=== PATIENT | male | born 1985 | race Caucasian/White ===

== ENCOUNTER 2025-02-04 08:21 | Day surgery (SDC) | payer OTHER, SELFPAY ==
[2025-02-04] VITALS (12 sets, daily range): BP systolic 127–153; BP diastolic 78–100; PULSE 62–78; RESP 16–20; TEMP 36.3–36.8; O2SAT 95–100; BMI 28.9
--- NOTE | 2025-02-04 08:39 | EX.ED.DYSGE1 ---
HPI History of Present Illness Chief Complaint: Nausea/Vomiting Informant: patient Onset/Context/Timing Onset: Today Context: Gradual Onset Timing: Continuous Quality: Aching Location: Left flank Worsened by: Nothing Relieved by: Nothing Narrative Narrative: Patient presents with nausea, vomiting, and abdominal pain that began today. Patient states it is gradually gotten worse. Patient states he had a ureteral stent placed 6 days ago for a kidney stone. Patient admits to some dysuria and hematuria that has been intermittent since that time. Patient states he was having some urinary frequency yesterday. Patient states today started having some nausea and vomiting. Patient states he felt like he had a fever at home but his temperature was normal. Patient also admits to headache. Patient states he did have some emesis that he thought was possibly bloody. Patient denies any diarrhea, melena, or hematochezia. [facility] Medical History (Updated 02/04/25 @ 10:[address] Clemente Mack DO) Ureteral calculus, left Allergy/AdvReac Type Severity Reaction Status Date / Time Penicillins AdvReac Intermediate Nausea Verified 02/04/25 08:24 Surgical History (Updated 02/04/25 @ 08:[address] Clemente Mack DO) Hx of Achilles tendon repair S/P ureteral stent placement Social History Smoking Status: Never smoker ROS ROS ED Constitutional Constitutional ED: Reports fever(s) and subjective; Denies chills Eyes Eyes: Denies blurry vision or change in vision ENT ENT ED: Reports rhinorrhea; Denies sore throat Cardiovascular Cardiovascular: Denies chest pain or palpitations Respiratory/Chest Respiratory/Chest: Denies cough or dyspnea Gastrointestinal Gastrointestinal: Reports abdominal pain, nausea and vomiting; Denies diarrhea Genitourinary Genitourinary ED: Reports dysuria, hematuria and urinary frequency Musculoskeletal Musculoskeletal: Reports back pain; Denies neck pain Integumentary Denies abscess or rash Neurologic Neurologic: Reports headache(s); Denies weakness Allergic/Immunologic Allergic/Immunologic ED: Denies mouth swelling or urticaria EXAM Physical Exam Const Vital Signs: 02/04/25 08:22 02/04/25 10:21 Temperature 98.2 F Temperature Source Oral Pulse Rate 64 78 Respiratory Rate 16 18 Blood Pressure 150/100 H 138/91 H Blood Pressure Mean 116 106 Pulse Ox 100 95 Oxygen Delivery Method Room Air Room Air Positive well nourished and well developed General Appearance ED: well developed and NAD HEENT Reports moist mucous membranes and dry mucous membranes Mouth ED: Yes dry mucous membranes Mouth: dry mucous membranes Neck supple and no JVD Resp normal respiratory effort and clear to auscultation bilaterally Cardio regular rate and regular rhythm GI non-tender and non-distended Palpation: soft Back/Spine General Back: CVA tenderness left (Mild) Extremity normal to inspection General Extremety ED: Negative for edema or tenderness General Extremity: Negative for edema Neuro oriented x3, CN's II-XII intact bilaterally and no sensory deficits noted Sensorium / Orientation: alert Motor Exam: strength 5/5 throughout Psych mental status grossly normal MDM MDM MDM Narrative Medical decision making narrative: Differential diagnosis includes pyelonephritis, ureteral calculus, displacement of ureteral stent, sepsis, viral illness, and electrolyte abnormality. CBC will be obtained to assess for leukocytosis and anemia. Basic metabolic profile will be obtained to assess for electrolyte abnormality and renal function. Serum lactate will be obtained to assess for sepsis. Urinalysis will be obtained to assess for urinary tract infection and hematuria. CT scan of the abdomen and pelvis will be obtained to assess for pyelonephritis, displacement of ureteral stent, and ureteral calculus. Lab Data Attestation: I reviewed the patient's lab results. Lab results narrative: CBC was reviewed and was within normal limits. Basic metabolic profile was reviewed and was within normal limits. Serum lactate was reviewed and was less than 1.0. PT with INR and PTT were reviewed and were within normal limits. Urinalysis was reviewed. Occult blood was 250 with 25-50 red blood cells. Leukocyte esterase was 25 was 0-5 white blood cells. Labs: Laboratory Results - last 24 hr 02/04/25 02/04/25 02/04/25 08:35 09:04 10:04 WBC 8.8 RBC 4.65 Hgb 13.9 Hct 40.7 MCV 87.5 MCH 29.9 MCHC 34.2 RDW Std Deviation 40.6 RDW Coeff of Gilberto 12.7 Plt Count 238 MPV 10.0 Immature Gran % (Auto) 0.500 Neut % (Auto) 77.7 H Lymph % (Auto) 14.5 L [place] % (Auto) 5.4 Eos % (Auto) 1.6 Baso % (Auto) 0.3 Absolute Neuts (auto) 6.9 Absolute Lymphs (auto) 1.28 Nucleated RBC % 0 PT 13.4 INR 1.0 APTT 26.3 Sodium 138 Potassium 4.5 Chloride 104 Carbon Dioxide 24.9 Anion Gap 9 BUN 13 Creatinine 0.90 Estim Creat Clear Calc 140.59 Est GFR (MDRD) Non-Af 112 BUN/Creatinine Ratio 14.7 Glucose 111 H Lactic Acid < 1.0 Calcium 9.4 Urine Color Yellow Urine Clarity Clear Urine pH 8.0 Ur Specific [place] 1.010 Urine Protein 30 H Urine Glucose (UA) Normal Urine Ketones Negative Urine Occult Blood 250 H Urine Nitrite Negative Urine Bilirubin Negative Urine Urobilinogen Normal Ur Leukocyte Esterase 25 H Urine RBC 25-50 SEEN Urine WBC 0-5 SEEN Ur Squamous Epith Cells 0 SEEN Urine Bacteria 1+ Urine Mucus 0 SEEN Radiography Diagnostic Testing: Clinical Impression(s) from Imaging Studies Abdomen/Pelvis CT 02/04/25 09:18 IMPRESSION: 1. Left ureteral stent present in satisfactory position. 2. Trace left-sided hydronephrosis versus caliectasis, may signify dysfunction/occlusion of the stent. 3. Mild left periureteral fat stranding, possibly due to reactive changes or an infectious etiology. Reading Location: [facility] CT scan of the abdomen and pelvis was obtained. There is a left ureteral stent noted. There is trace hydronephrosis versus calyectasis on the left. There is left periureteral fat stranding. This was interpreted by the radiologist and was also independently reviewed by myself. Treatment and Re-Evaluation :: Patient was given IV fluids, morphine, and Zofran. Patient was feeling better on reevaluation. Patient was advised of his findings. Case was discussed with Dr. Gonzalez. He will take the patient to the operating room for ureteroscopy. Patient was advised of this. Patient states he has not anything to eat since last night. Patient states he has been drinking water this morning. Patient will be maintained NPO. Patient understands and is agreeable with the plan. All questions were answered. Discharge Plan Triage Chief Complaint: Nausea/Vomiting ED Provider: Clemente Mack Dx/Rx/DC Orders Clinical Impression: Left flank pain, Hydronephrosis of left kidney Primary Care Provider: Angel Reveles Referrals: Angel Reveles MD [Primary Care Provider] - Print Language: [place] Citizen Disposition Disposition: Acute Care Hospital [facility]
[2025-02-04] MEDS: Ondansetron 4 MG/2 ML Vial IV (09:02)
[2025-02-04] MEDS: 0.9% Normal Saline (1000mL) 1,000 ML 1000 ML IV (09:02)
[2025-02-04] MEDS: Morphine 4 MG/ML Syringe IV ×2 (09:02→13:34)
[2025-02-04 09:07] LABS: Absolute Lymphocyte Count 1.28 X10^3/uL (0.83-4.51); Absolute Neutrophil Count 6.9 X10^3/uL (2.0-7.7); Basophil# 0.03 X10^3/uL; Basophil% 0.3 % (0-1); Eosinophil# 0.14 X10^3/uL; Eosinophils% 1.6 % (0-5); Hematocrit 40.7 % (40-54); Hemoglobin 13.9 g/dL (13.0-16.5); Lymphocyte # 1.28 X10^3/ul (0.83-4.51); Lymphocyte % 14.5 % (19-41); Mean Corp Hgb Conc 34.2 g/dL (32-36); Mean Corpuscular Hgb 29.9 pg (27.0-32.0); Mean Corpuscular Volume 87.5 fL (80-94); Monocyte# 0.48 X10^3/uL; Monocyte% 5.4 % (0-10); NRBC Flagged by Analyzer 0 % (0-5); Neutrophil # 6.85 X10^3/uL (2.7-7.7); Neutrophil % 77.7 % (47-70); Platelet Count 238 K/mm3 (150-450); RBC Distribution Width CV 12.7 % (11.6-14.6); RBC Distribution Width SD 40.6 fl (35.1-43.9); Red Blood Count 4.65 M/mm3 (4.6-6.2); White Blood Count 8.8 K/mm3 (4.4-11.0)
[2025-02-04 09:13] LABS: Prothrombin Time (Protime)PT. 13.4 SECONDS (11.7-14.9)
[2025-02-04 09:14] LABS: Partial Thromboplast Time 26.3 Seconds (24.1-36.2)
--- NOTE | 2025-02-04 09:18 | CT_ITS ---
PROCEDURE: ABDOMEN/PELVIS W IV CONT ONLY 02/04/2025 REASON FOR EXAM: LEFT FLANK PAIN TECHNIQUE: Abdomen and pelvis CT with intravenous contrast. Coronal and Sagittal reconstruction series were provided. One or more dose reduction techniques were used (e.g., Automated exposure control, adjustment of the mA and/or kV according to patient size, use of iterative reconstruction technique. COMPARISON: None FINDINGS: Lower chest: Unremarkable. Liver: Unremarkable. Biliary/gallbladder: Unremarkable. Pancreas: Unremarkable. Spleen: Unremarkable. Adrenal glands: Unremarkable. Kidneys: A double-J left ureteral stent is present in satisfactory position. There is trace left-sided hydronephrosis versus caliectasis there is mild hazy fat stranding surrounding the mid left ureter. Gastrointestinal/peritoneum: No acute abnormality.The appendix is unremarkable.No free air or free fluid. Vascular: Unremarkable. Lymph nodes: No enlarged lymph nodes by CT size criteria. Pelvic organs: Unremarkable. Bladder: Unremarkable. Bones: Chronic bilateral pars defects present at L5. There is a slight anterolisthesis of L5 on S1. Soft tissues: Unremarkable. CT/Abdomen/Pelvis W IV Cont ONLY IMPRESSION: 1. Left ureteral stent present in satisfactory position. 2. Trace left-sided hydronephrosis versus caliectasis, may signify dysfunction/ occlusion of the stent. 3. Mild left periureteral fat stranding, possibly due to reactive changes or an infectious etiology. Reading [facility]
[2025-02-04 09:33] LABS: Anion Gap 9 (5-15); BUN 13 mg/dL (4-19); BUN/Creat Ratio 14.7 RATIO (10-20); Calcium,Total 9.4 mg/dL (7.6-11.0); Carbon Dioxide 24.9 mmol/L (21.0-32.0); Chloride 104 mmol/L (98-108); EST Glomerular Filtration Rate 112 (>60); Estimated Creatinine Clearance 140.59 ml/min (50-250); Glucose 111 mg/dL (70-99); Potassium 4.5 mmol/L (3.3-5.1); Sodium Level 138 mmol/L (133-145)
[2025-02-04 09:39] LABS: Lactic Acid < 1.0 mmol/L (0.0-2.0)
[2025-02-04 10:11] LABS: Mucous, Urine 0 SEEN /hpf (<or=2+); Squamous Epithelial Cells - UA 0 SEEN /hpf (0-5)
[2025-02-04 10:13] LABS: Color, Urine Yellow (Yellow); Glucose, Dipstick Normal (Normal); Ketone-Dipstick Negative (Negative); Leukocyte Esterase-Dipstick 25 /ul (Negative); Nitrite-Dipstick Negative (Negative); Occult Blood-Urine 250 /ul (Negative); Protein-Dipstick 30 mg/dl (Negative); Urine Bilirubin Dipstick Negative (Negative); Urine Clarity Clear (Clear); Urine Urobilinogen Normal (Normal)
[2025-02-04 10:18] LABS: Bacteria 1+ /hpf (None Seen); Red Blood Cells-Urine 25-50 SEEN /hpf (0-5)
[2025-02-04 10:19] LABS: White Blood Cells 0-5 SEEN /hpf (0-5)
--- NOTE | 2025-02-04 10:50 | PCM.HP.STD ---
HPI - General General Date of Service: 02/04/25 Chief Complaint: Left severe flank pain HPI Narrative CELINA OVERTON, is a 39 M who presents to the emergency room he had a stent put in for a stone had a CAT scan done today which demonstrates stents in place oxyhood only identified a stone on CAT scan he is having a severe amount of pain on the left side perhaps he has passed a stone but cannot tolerate the stent so plan to take him to surgery today for ureteroscopy laser of any stones are found and possible stent removal. [facility] Medical History (Updated 02/04/25 @ 08:[address] Clemente Mack DO) Ureteral calculus, left Allergy/AdvReac Type Severity Reaction Status Date / Time Penicillins AdvReac Intermediate Nausea Verified 02/04/25 08:24 Surgical History (Updated 02/04/25 @ 08:[address] Clemente Mack DO) Hx of Achilles tendon repair S/P ureteral stent placement Social History Smoking Status: Never smoker Vital Signs Vital Signs Vital Signs: 02/04/25 08:22 02/04/25 10:21 Temperature 98.2 F Temperature Source Oral Pulse Rate 64 78 Respiratory Rate 16 18 Blood Pressure 150/100 H 138/91 H Blood Pressure Mean 116 106 Pulse Ox 100 95 Oxygen Delivery Method Room Air Room Air Weight Weight: 102.2 kg Body Mass Index (BMI) 28.9 Results Lab / Micro Data 02/04/25 08:35 02/04/25 08:35 Labs: Laboratory Results - last 24 hr 02/04/25 08:35: WBC 8.8, RBC 4.65, Hgb 13.9, Hct 40.7, MCV 87.5, MCH 29.9, MCHC 34.2, RDW Std Deviation 40.6, RDW Coeff of Gilberto 12.7, Plt Count 238, MPV 10.0, Immature Gran % (Auto) 0.500, Neut % (Auto) 77.7 H, Lymph % (Auto) 14.5 L, [place] % (Auto) 5.4, Eos % (Auto) 1.6, Baso % (Auto) 0.3, Absolute Neuts (auto) 6.9, Absolute Lymphs (auto) 1.28, Nucleated RBC % 0, PT 13.4, INR 1.0, APTT 26.3, Sodium 138, Potassium 4.5, Chloride 104, Carbon Dioxide 24.9, Anion Gap 9, BUN 13, Creatinine 0.90, Estim Creat Clear Calc 140.59, Est GFR (MDRD) Non-Af 112, BUN/Creatinine Ratio 14.7, Glucose 111 H, Calcium 9.4 02/04/25 09:04: Lactic Acid < 1.0 02/04/25 10:04: Urine Color Yellow, Urine Clarity Clear, Urine pH 8.0, Ur Specific [place] 1.010, Urine Protein 30 H, Urine Glucose (UA) Normal, Urine Ketones Negative, Urine Occult Blood 250 H, Urine Nitrite Negative, Urine Bilirubin Negative, Urine Urobilinogen Normal, Ur Leukocyte Esterase 25 H, Urine RBC 25-50 SEEN, Urine WBC 0-5 SEEN, Ur Squamous Epith Cells 0 SEEN, Urine Bacteria 1+, Urine Mucus 0 SEEN Imaging Radiology Impression Abdomen/Pelvis CT 02/04/25 09:18 IMPRESSION: 1. Left ureteral stent present in satisfactory position. 2. Trace left-sided hydronephrosis versus caliectasis, may signify dysfunction/occlusion of the stent. 3. Mild left periureteral fat stranding, possibly due to reactive changes or an infectious etiology. Reading Location: [facility]
--- NOTE | 2025-02-04 14:43 | PCM.PRE.AN2 ---
ASA Classification* ASA Classification ASA Classification: 2 Assessment & Plan Anesthesia* Anesthesia Assessment Anesthesia Assessment: Discussed sedation and/or anesthesia options, risks, benefits, and alternatives with patient/parents/legal guardian/POA. Questions invited. The patient/parents/legal guardian/POA seems to understand and agrees to proceed with anesthesia plan. Reviewed the physical assessment, medical history, allergy history and patient home medications list prior to surgery/procedure/anesthetic and documented any changes. Performed airway and anesthesia risk assessments. Anesthesia Type Anesthesia Type: General Anesthesia Focused Assessment* Temperature: 97.6 F Pulse Rate: 74 Blood Pressure: 134/78 Respiratory Rate: 20 Pulse Ox: 99 Airway Assessment Mouth opens: >3 cm Mallampati Score: II Focused Labs Anesthesia Preop lab: CBC WBC 8.8 K/mm3 (4.4-11.0) 02/04/25 08:35 02/04/25 RBC 4.65 M/mm3 (4.6-6.2) 02/04/25 08:35 02/04/25 Hgb 13.9 g/dL (13.0-16.5) 02/04/25 08:35 02/04/25 Hct 40.7 % (40-54) 02/04/25 08:35 02/04/25 Plt Count 238 K/mm3 (150-450) 02/04/25 08:35 02/04/25 CHEMISTRY Potassium 4.5 mmol/L (3.3-5.1) 02/04/25 08:35 02/04/25 Sodium 138 mmol/L (133-145) 02/04/25 08:35 02/04/25 BUN 13 mg/dL (4-19) 02/04/25 08:35 02/04/25 Creatinine 0.90 mg/dL (0.70-1.20) 02/04/25 08:35 02/04/25 Glucose 111 mg/dL (70-99) H 02/04/25 08:35 02/04/25 COAG PT 13.4 SECONDS (11.7-14.9) 02/04/25 08:35 02/04/25 Pre-Assessment Diagnosis/Proposed Procedure Planned Operative Procedure(s): Cystoscopy, Laser of ureteral stone left Anesthesia History Anesthesia History - bronc breaker: Anesthesia History - bronc breaker Hx Hospitalization Any Problems With Anesthesia No 02/04/25 11:03 Cholinesterase deficiency You/Your Family Experience fever (hyperthermia) with Relationship Recent Exposure to Contagious Disease Does patient have nerve No 02/04/25 11:03 stimulator Patient instructed to have device shut off --Does patient have Pacemaker or ICD? When Was Last Pacemaker Check QUESTION #4 FULL TEXT: You/Your Family Experience fever (hyperthermia) with Anesthesia Last Oral Intake Last Oral intake: Last Oral Intake NPO since Meds taken in AM with sips of water? Meds patient instructed to take am of surgery PONV PONV - bronc breaker: PONV - bronc breaker Female HX of Motion Sickness HX of N/V After Surgery Non-Smoker Duration of Surgery greater than 60 minutes Number of Risk Factors PONV Score Height & Weight Height & Weight: Anesthesia: Height & Weight Height 6 ft 2 in 02/04/25 11:03 Weight: 102.2 kg 02/04/25 11:03 Body Mass Index (BMI) 28.9 02/04/25 11:03 Respiratory Assessment Respiratory Assessment - bronc breaker: Respiratory Tract Infection Hx - bronc breaker Hx Respiratory Tract Infection STOP Sleep Apnea STOP Sleep Apnea - bronc breaker: STOP Sleep Apnea - bronc breaker Hx Hypertension No 02/04/25 11:03 Hx Sleep Apnea No 02/04/25 11:03 CPAP BIPAP Do you snore loudly (louder No 02/04/25 11:03 than talking or can be heard Do you often feel tired/ No 02/04/25 11:03 fatigued/ sleepy during daytime? Has anyone observed you stop No 02/04/25 11:03 breathing during sleep? STOP Results Negative 02/04/25 11:03 QUESTION #5 FULL TEXT : Do you snore loudly (louder than talking or can be heard through closed doors)? 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 Specify any problems Hx of Preganancy in last 3 Months Nurse Filling Out Transfusion & Questions: Date: Time: Patient unable to answer at this time (ie. confused, unrespo /Reproduction History /Reproductive History - bronc breaker: /Reproductive Hx- bronc breaker Hx Now Gestational Age (in weeks): EDC: Hx Hx Para Hx Section SAB PFSH Medical History Ureteral calculus, left Home Medications ?Medication ?Instructions ?Recorded ?Last Taken ?Type ondansetron HCl 4 mg tablet 4 mg PO Q8H PRN nausea/vomiting 02/04/25 02/04/25 History oxycodone-acetaminophen 5 mg-325 1 tab PO Q6H PRN PRN pain 02/04/25 02/03/25 History mg tablet tamsulosin 0.4 mg capsule 0.4 mg PO BID 02/04/25 02/03/25 History Allergy/AdvReac Type Severity Reaction Status Date / Time Penicillins AdvReac Intermediate Nausea Verified 02/04/25 08:24 Surgical History Hx of Achilles tendon repair S/P ureteral stent placement Social History Smoking Status: Never smoker Review of Systems (Anesthesia) ROS Narrative System reviewed and no additional complaints, except as documented.
--- NOTE | 2025-02-04 15:59 | PCM.DC ---
Discharge Instructions Diet Discharge Diet: No restrictions DC O2, CPAP, BIPAP needs Home O2 Discharge instructions: No Dressing / Incision Discharge Activity: Return to Normal Activity and May Not Drive (while taking narcotic pain medications.) Dressing / Incision Call your doctor if you observe: Fever of 101 or Higher Follow Up Care Please Follow Up With: Austin Gonzalez MD When: Call [phone] for an appointment Test Results: Test results from this visit will be discussed in further detail at your follow-up appointment, if applicable. Discharge Plan Admission Attending Provider: Austin Gonzalez Primary Care Provider: Angel Reveles Instructions Print Language: Italian Discharge Orders/Prescriptions Prescriptions: New phenazopyridine [Pyridium] 100 mg tablet 100 mg PO TID Qty: 10 0RF oxycodone 5 mg tablet 5 mg PO Q6H PRN (Reason: pain) 3 Days Qty: 10 0RF No Action oxycodone-acetaminophen 5-325 mg tablet 1 tab PO Q6H PRN PRN (Reason: pain) tamsulosin 0.4 mg capsule 0.4 mg PO BID ondansetron HCl 4 mg tablet 4 mg PO Q8H PRN (Reason: nausea/vomiting) Referrals / Follow Up: Angel Reveles MD [Primary Care Provider] - Austin Gonzalez MD [Med Staff - Active Staff] - Disposition Disposition (needs filled in before D/C Order can be placed): Home, Self Care
[2025-02-04] MEDS: Cefazolin 2 GM in Syringe IV (17:35)
[2025-02-04] MEDS: Lidocaine Jelly 2% 20 ML Syringe (URO-JET) 1 APPLIC (17:35)
--- NOTE | 2025-02-04 17:46 | OP.PCM_ITS ---
Operative Report (Standard) Operative Information Date of Procedure: 02/04/25 Pre-Operative Diagnosis: Left ureteral calculi left severe flank pain Post-Operative Diagnosis: The same Surgery/Procedure Performed: Cystoscopy left ureteroscopy basket extraction of stone and stent removal database administrator: No Type of Anesthesia: General RN Documented Start/Stop Times: Operation Date: 02/04/25 17:00 Case Time Into Pre-Op 02/04/25 14:07 Anesthesia Start 02/04/25 17:21 Into Room 02/04/25 17:21 Procedure Start 02/04/25 17:34 Procedure End 02/04/25 17:45 Procedure Start Time: 17:34 Procedure Stop Time: 17:47 Select all DRAINS/GRAFTS/IMPLANTS that apply: None Estimated Blood Loss: 0 Specimen collected: Yes Description of specimen(s) removed: Kidney stone Description of surgery: 39-year-old male had a cystoscopy and stent placement for obstructing stone at [facility] about a week ago he was set up for shockwave lith otripsy to break the stone but he presented back to the hospital at [facility] here in severe pain on the left side CT scan was done to demonstrate the stone in place no obvious location to see where the stone is on CAT scan is hard to see but is active taken to surgery today for ureteroscopy and possible removal of stent and possible treatment of stone if found. Patient was taken back to the operating room after smooth induction of anesthesia he was placed in dorsolithotomy position. Went in the bladder with a 21 [place] rigid cystourethroscope removed existing stent from the left side I put a wire through the stent and then over the wire went in with a flexible ureteroscope was able to get up to the kidney I did ureteroscopy expected and inspected the upper pole lower pole of the kidney no visible stones in the kidney itself worked my way down the ureter and then encountered a large fragment stone fragment in the distal mid ureter I then used a nitinol tipless basket was able to grab the stone and then extract the stone completely. I then went back into the bladder and then went back up the ureter with the ureteroscope no other stone fragments were seen the ureter was clear of any trauma injury or perforation and therefore I did not put in that the stent and. The patient's bladder was drained anesthetic was versed taken back to PACU in good condition and he should be able go home today follow-up in the office in 3 to 4 weeks for checkup. Surgical Findings: Kidney stone removed with ureteroscopy Complications Complications: No Admit VTE Documentation VTE Present on Admission: No VTE Mechan Device Prophylaxis: SCD's VTE Pharm Prophylaxis ordered?: No
--- NOTE | 2025-02-04 18:02 | PCM.POST.ANE ---
Anesthesia: Postop Eval I Current Vital Signs Temperature: 97.6 F Pulse Rate: 66 Blood Pressure: 138/89 Respiratory Rate: 16 Pulse Ox: 100 Oxygen Delivery Method: Room Air Assessment Airway patent: Yes Spontaneous unlabored respirations: Yes Mental status: Awake and Calm nausea: No Vomiting: No Anesthesia Complication: No Fluid Hydration Crystalloid volume administer (ml): 700 Total IV fluid infused: 700 Progress Note Anesthesia document: Postop Eval 1 completed: Yes
--- NOTE | 2025-02-04 18:03 | PCM.POSTANE2 ---
Anesthesia Postop Eval I Sum Postop Eval Completion status Anesthesia document: Postop Eval 1 completed: Yes Anesthesia Postop Eval I Summary Anesthesia Postop Eval I Summary: Anesthesia Postop Eval I: Assessment Summary Airway patent Yes 02/04/25 18:03 Spontaneous unlabored Yes 02/04/25 18:03 respirations Mental status Awake,Calm 02/04/25 18:03 nausea No 02/04/25 18:03 Vomiting No 02/04/25 18:03 Anesthesia Postop Eval I: Fluid Summary Crystalloid volume administer 700 02/04/25 18:03 (ml) Colloids volume administered ( ml) Blood Product volume administered (ml) Total IV fluid infused 700 02/04/25 18:03 Anesthesia Postop Eval I: Summary Notes Anesthesia Complication No 02/04/25 18:03 Anesthesia Complication Comment: Post-operative progress note Anesthesia: Postop Eval II Evaluation Mental status: Awake Pain Level: 0 nausea: No Vomiting: No
[2025-02-04] MEDS: oxyCODONE 5 MG Tablet PO (18:23)
[2025-02-04] MEDS: Ketorolac 15 MG/ML Vial IV (18:23)
== END 2025-02-04 18:39 | disposition home or self-care (01) ==
LOC: ED 10:59 → SDC 11:08 → AC 11:08
PROVIDERS: Emergency Provider Emergency Medicine; PCP Family Medicine; Visit Provider Urology
PROC: 0TJ98ZZ Inspection of Ureter, Via Natural or Artificial Opening Endoscopic (ICD-10-PCS; CPT 52352; principal; 2025-02-04 16:50)
DX: N13.2 Hydronephrosis with renal and ureteral calculous obstruction (principal)
CPT/HCPCS: 52352; 00918; 74177; 80048; 81001; 82360; 83605; 85025; 85610; 85730; 99284; Q9967; A4216; C1769; J2405